=== PATIENT | female | born 1975 | race Caucasian/White ===

== ENCOUNTER → 2016-07-15 | Outpatient (CLI) | payer OTHER | LOC: FIMAGING 08:07 | DX: Z12.31 Encounter for screening mammogram for malignant neoplasm of breast (principal); Z80.3 Family history of malignant neoplasm of breast | CPT/HCPCS: G0202 ==

== ENCOUNTER → 2017-06-20 | Outpatient (CLI) | payer OTHER | LOC: FIMAGING 16:20 | PROVIDERS: ATTEND Nurse Practitioner Family | DX: R07.89 Other chest pain (principal); R06.09 Other forms of dyspnea ==

== ENCOUNTER → 2017-06-22 | Outpatient (CLI) | payer OTHER ==
--- NOTE | 2017-06-22 10:03 | CPEKG ---
Heart Rate: 60 RR Interval: 1000 P-R Interval: 136 QRSD Interval: 96 QT Interval: 428 QTC Interval: 428 P [place]: 41 QRS [place]: 100 T Wave [place]: 26 EKG Severity - BORDERLINE ECG - EKG Impression: SINUS RHYTHM EKG Impression: INCOMPLETE RIGHT BUNDLE BRANCH BLOCK Electronically Signed By: Darren Machado 27-Jun-2017 11:47:25
== END ==
LOC: FCP 09:50
PROVIDERS: ATTEND Nurse Practitioner Family
DX: I45.2 Bifascicular block (principal)

== ENCOUNTER → 2017-07-17 | Outpatient (CLI) | payer OTHER | LOC: FIMAGING 09:43 | PROVIDERS: ATTEND Podiatrist Foot & Ankle Surgery | DX: M19.072 Primary osteoarthritis, left ankle and foot (principal) ==